=== PATIENT | male | born 1975 | race Hispanic/Latino ===

== ENCOUNTER 2024-09-24 12:29 | Emergency (ER) | payer SELFPAY ==
[2024-09-24] MEDS ORDERED: LIDOCAINE 2% W/EPI 1:200,000 MPF 20 ML VIAL IM ONE (12:41)
[2024-09-24] MEDS ORDERED: CEFAZOLIN SODIUM 2 GM/VIAL ONE (12:50)
[2024-09-24] MEDS ORDERED: TDAP (DIPHTH,PERTUSS(ACELL),TET VAC) 0.5 ML VIAL IMVAC ONE (12:50)
[2024-09-24] MEDS ORDERED: NA CHLORIDE 0.9% 100 ML ONE (12:50)
[2024-09-24 13:07] LABS: Absolute Basophils 0.1 K/uL (0-0.5); Absolute Eosinophils 0.2 K/uL (0-0.5); Absolute Lymphocytes (CBC) 2.5 K/uL (0.7-4.9); Absolute Monocytes 0.7 K/uL (0.1-1.3); Absolute Neutrophil 6.9 K/uL (1.8-8.0); Basophils % 0.9 % (0-1.3); Eosinophils % 1.7 % (0-4.4); Hematocrit 40.2 % (39.6-49.0); Hemoglobin 13.4 g/dL (13.6-17.9); Lymphocytes % 24.2 % (15.3-44.8); MCH 31.7 pg (27.0-35.0); MCHC 33.3 g/dL (32.0-36.0); MCV 95.1 fL (80-100); MPV 7.7 fL (7.6-11.3); Monocytes % 6.6 % (3.3-12.3); Neutrophils % 66.6 % (41.7-73.7); Platelets 336 thou/uL (152-406); RBC Red Blood Cell Count 4.22 M/uL (4.33-5.43); Red Cell Distribution Width 13.1 % (12.1-15.2)
[2024-09-24 13:10] LABS: PT Prothrombin Time 11.7 SECONDS (9.4-12.5); Protime INR 1.05
--- NOTE | 2024-09-24 13:18 | EDPHYS ---
Physician Documentation [facility] Name: Atul Odom Age: 49 yrs Sex: Male : 1975 Arrival Date: 09/24/2024 Time: 12:29 Bed 3 Private MD: ROSALINE Physician Abner Lafleur HPI: 09/24 13:08 This 49 yrs old Male presents to ER via Ambulatory with complaints of tom Laceration To Arm. 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 The laceration(s) tom is(are) located on the palmar aspect of right forearm. Onset: The symptoms/episode began/occurred just prior to arrival. Associated signs and symptoms: Pertinent positives: heavy bleeding. The patient has not experienced similar symptoms in the past. Historical: - Allergies: 13:05 No Known Allergies; ph - PMHx: 13:05 None; ph - Immunization history:: Adult Immunizations unknown. - Infectious Disease History:: Denies. - Social history:: Smoking status: unknown. ROS: 13:08 Constitutional: Negative for fever, chills, and weight loss, Eyes: Negative for injury, tom pain, redness, and discharge, ENT: Negative for injury, pain, and discharge, Neck: Negative for injury, pain, and swelling, Cardiovascular: Negative for chest pain, palpitations, and edema, Respiratory: Negative for shortness of breath, cough, wheezing, and pleuritic chest pain, Abdomen/GI: Negative for abdominal pain, nausea, vomiting, diarrhea, and constipation, Back: Negative for injury and pain, : Negative for injury, bleeding, discharge, and swelling, Skin: Negative for injury, rash, and discoloration, Neuro: Negative for headache, weakness, numbness, tingling, and seizure, Psych: Negative for depression, anxiety, suicide ideation, homicidal ideation, and hallucinations, Allergy/Immunology: Negative for hives, rash, and allergies, Endocrine: Negative for neck swelling, polydipsia, polyuria, polyphagia, and marked weight changes, Hematologic/Lymphatic: Negative for swollen nodes, abnormal bleeding, and unusual bruising, 13:08 MS/extremity: Positive for laceration, pain, tenderness, of the palmar aspect of right forearm, Exam: 13:08 Constitutional: This is a well developed, well nourished patient who is awake, alert, tom and in no acute distress. Head/Face: Normocephalic, atraumatic. Eyes: Pupils equal round and reactive to light, extra-ocular motions intact. Lids and lashes normal. Conjunctiva and sclera are non-icteric and not injected. Cornea within normal limits. Periorbital areas with no swelling, redness, or edema. ENT: Nares patent. No nasal discharge, no septal abnormalities noted. Tympanic membranes are normal and external auditory canals are clear. Oropharynx with no redness, swelling, or masses, exudates, or evidence of obstruction, uvula midline. Mucous membranes moist. Neck: Trachea midline, no thyromegaly or masses palpated, and no cervical lymphadenopathy. Supple, full range of motion without nuchal rigidity, or vertebral point tenderness. No Meningismus. Chest/axilla: Normal chest wall appearance and motion. Nontender with no deformity. No lesions are appreciated. Cardiovascular: Regular rate and rhythm with a normal S1 and S2. No gallops, murmurs, or rubs. Normal PMI, no JVD. No pulse deficits. Respiratory: Lungs have equal breath sounds bilaterally, clear to auscultation and percussion. No rales, rhonchi or wheezes noted. No increased work of breathing, no retractions or nasal flaring. Abdomen/GI: Soft, non-tender, with normal bowel sounds. No distension or tympany. No guarding or rebound. No evidence of tenderness throughout. Back: No spinal tenderness. No costovertebral tenderness. Full range of motion. Male : Normal genitalia with no discharge or lesions. Skin: Warm, dry with normal turgor. Normal color with no rashes, no lesions, and no evidence of cellulitis. Neuro: Awake and alert, GCS 15, oriented to person, place, time, and situation. Cranial nerves II-XII grossly intact. Motor strength 5/5 in all extremities. Sensory grossly intact. Cerebellar exam normal. Normal gait. Psych: Awake, alert, with orientation to person, place and time. Behavior, mood, and affect are within normal limits. 13:08 Musculoskeletal/extremity: Extremities: decreased ROM, laceration, pain, ROM: limited active range of motion due to pain, limited passive range of motion due to pain, Circulation is intact in all extremities. decreased sensation, Compartment Syndrome exam of affected extremity: is normal. Tendon exam: specific tendon testing normal through active and passive range of motion Vital Signs: 13:03 BP 142 / 87; Pulse 87; Resp 18; Temp 97.9; Pulse Ox 98% ; ph 14:48 BP 136 / 84; Pulse 89; Resp 18; Temp 98; Pulse Ox 98% on R/A; ph Gretel Coma Score: 13:08 Eye Response: spontaneous(4). Motor Response: obeys commands(6). Verbal Response: tom oriented(5). Total: 15. MDM: 13:06 Medical Screening Exam initiated [facility] 13:10 Differential diagnosis: tendon injury, vascular injury. Data reviewed: vital signs, [facility] nurses notes, lab test result(s), radiologic studies, plain films. Consideration of Admission/Observation Escalation of care including admission/observation considered. I considered the following discharge prescriptions or medication management in the emergency department Medications were administered in the Emergency Department. See MAR. Independent interpretation of the following test(s) in the Emergency Department X-Ray: My interpretation is no fx , no fb. Test considered but Not performed: Ultrasound no arterial doppler. 09/24 12:48 Order name: CBC with Diff; Complete Time: 13:35 ph 09/24 12:48 Order name: Basic Metabolic Panel; Complete Time: 13:35 ph 09/24 12:48 Order name: PT-INR; Complete Time: 13:35 ph 09/24 13:01 Order name: Forearm Right XRAY [facility] 09/24 12:48 Order name: Dressing - Wound; Complete Time: 12:54 ph 09/24 12:48 Order name: Gloves, Sterile; Complete Time: 12:54 ph 09/24 12:48 Order name: Setup Suture Tray; Complete Time: 12:54 ph 09/24 13:01 Order name: NPO; Complete Time: 13:07 [facility] Administered Medications: 12:54 Drug: Lidocaine-Epinephrine Infiltration -1%: (1:100,000) 1 vials 20 ml Infiltration ph once; to bedside Volume: 20 ml; Route: Infiltration; 14:47 Follow up: Response: No adverse reaction ph 13:06 Drug: ceFAZolin IVPB 2 grams IVPB once over 30 mins; (mix in 100 mL NS) Route: IVPB; ph Infused Over: 30 mins; Site: left forearm; 13:38 Follow up: Response: No adverse reaction; IV Status: Completed infusion ph 13:06 Drug: Boostrix Tdap IM 0.5 ml IM once; as a single dose Route: IM; Site: left deltoid; ph 14:47 Follow up: Response: No adverse reaction ph 14:46 Not Given (Other Intervention Used): morphineor iv 4 mg IVP once over 4 mins ph 19:13 Not Given (Other Intervention Used): ondansetron 4 mg IVP once; over 2 minutes ph Disposition Summary: 09/24/24 13:17 Transfer Ordered Notes: Transfer Location: [facility] Reason: Higher level of care tom Condition: Fair tom Problem: new tom Symptoms: have improved tom Accepting Physician: to [facility] , hand surgery STAB FOREARM(09/24/24 14:49) ph Diagnosis - Other specified injuries right forearm, initial encounter - STAB / LACERATION WITH tom ARTERIAL AND VENOUS INJURY Forms: - Medication Reconciliation Form tom - SBAR form tom Signatures: Dispatcher [employer] EDAbner Calvo MD MD cha Hall, Patricia, RN RN ph Corrections: (The following items were deleted from the chart) 14:49 13:17 to [facility] , hand surgery STAB FOREARM [facility] ph
--- NOTE | 2024-09-24 13:18 | ER ---
Nurse's Notes [facility] Name: Atul Odom Age: 49 yrs Sex: Male : 1975 Arrival Date: 09/24/2024 Time: 12:29 Bed 3 Private MD: Diagnosis: Other specified injuries right forearm, initial encounter-STAB / LACERATION WITH ARTERIAL AND VENOUS INJURY Presentation: 09/24 13:03 Chief complaint: Patient states: Cut R forearm w/ a hooked kevan knife, significant ph amount of bleeding noted, soaked through dressing. Coronavirus screen: Vaccine status: Patient reports being unvaccinated. Ebola Screen: No symptoms or risks identified at this time. Complicating Factors: There are no complicating factors for this patient. Initial Sepsis Screen: Does the patient meet any 2 criteria? No. Patient's initial sepsis screen is negative. Does the patient have a suspected source of infection? No. Patient's initial sepsis screen is negative. Risk Assessment: Do you want to hurt yourself or someone else? Patient reports no desire to harm self or others. Onset of symptoms was September 24, 2024. 13:03 Method Of Arrival: Ambulatory ph 13:03 Acuity: TENNIL[place] 2 ph Triage Assessment: 13:05 General: Appears in no apparent distress. Behavior is calm, cooperative. Pain: ph Complains of pain in palmar aspect of right forearm. Neuro: Level of Consciousness is awake, alert, obeys commands, Oriented to person, place, time, situation. Cardiovascular: Capillary refill < 3 seconds Patient's skin is warm and dry. Injury Description: Laceration sustained to palmar aspect of right forearm is 0.5 to 2.5 cm long, bleeding profusely. Historical: - Allergies: 13:05 No Known Allergies; ph - PMHx: 13:05 None; ph - Immunization history:: Adult Immunizations unknown. - Infectious Disease History:: Denies. - Social history:: Smoking status: unknown. Screenin:07 [facility] ED Fall Risk Assessment (Adult) History of falling in the last 3 months, ph including since admission No falls in past 3 months (0 pts) Confusion or Disorientation No (0 pts) Intoxicated or Sedated No (0 pts) Impaired Gait No (0 pts) Mobility Assist Device Used No (0 pt) Altered Elimination No (0 pt) Score/Fall Risk Level 0 - 2 = Low Risk Oriented to surroundings, Maintained a safe environment, Hourly rounding (assess needs \T\ fall precautionary measures) done. Abuse screen: Denies threats or abuse. Denies injuries from another. Nutritional screening: No deficits noted. Tuberculosis screening: No symptoms or risk factors identified. Assessment: 13:08 General: SEE TRIAGE ASSESSMENT. ph Vital Signs: 13:03 BP 142 / 87; Pulse 87; Resp 18; Temp 97.9; Pulse Ox 98% ; ph 14:48 BP 136 / 84; Pulse 89; Resp 18; Temp 98; Pulse Ox 98% on R/A; ph Gretel Coma Score: 13:08 Eye Response: spontaneous(4). Motor Response: obeys commands(6). Verbal Response: tom oriented(5). Total: 15. ED Course: 12:29 Patient arrived in ED. ra3 12:32 Abner Lafleur MD is Attending Physician. ec2 12:46 Vika Dodge, RN is Primary Nurse. ph 13:01 transfer initiated to [facility] by dr lafleur. bd 13:05 Triage completed. ph 13:07 CBC with Diff Sent. ph 13:07 Basic Metabolic Panel Sent. ph 13:07 PT-INR Sent. ph 13:08 Patient has correct armband on for positive identification. Bed in low position. Call ph light in reach. Side rails up X 1. Pulse ox on. NIBP on. 13:08 Arm band placed on Patient placed in an exam room. ph 13:08 Assist provider with laceration repair on palmar aspect of right forearm that was 2.5 ph cm. or less using sutures. Set up tray. Performed by Abner Lafleur MD Dressed with Kerlix, Patient tolerated well. 13:48 pt accepted in transfer to [facility] er by dr Contreras admin approval given by bert Moore. 14:12 Forearm Right XRAY In Process Unspecified. EDMS 14:20 ems will transport pt. bd 14:48 Patient transferred, IV remains in place. ph Administered Medications: 12:54 Drug: Lidocaine-Epinephrine Infiltration -1%: (1:100,000) 1 vials 20 ml Infiltration ph once; to bedside Volume: 20 ml; Route: Infiltration; 14:47 Follow up: Response: No adverse reaction ph 13:06 Drug: ceFAZolin IVPB 2 grams IVPB once over 30 mins; (mix in 100 mL NS) Route: IVPB; ph Infused Over: 30 mins; Site: left forearm; 13:38 Follow up: Response: No adverse reaction; IV Status: Completed infusion ph 13:06 Drug: Boostrix Tdap IM 0.5 ml IM once; as a single dose Route: IM; Site: left deltoid; ph 14:47 Follow up: Response: No adverse reaction ph 14:46 Not Given (Other Intervention Used): morphineor iv 4 mg IVP once over 4 mins ph 19:13 Not Given (Other Intervention Used): ondansetron 4 mg IVP once; over 2 minutes ph Medication: 13:07 VIS not applicable for this client. ph Outcome: 13:17 ER care complete, transfer ordered by MD. santos 14:47 Transferred by ground EMS [facility], . to [facility], Transfer form ph completed. X-rays sent w/ patient. 14:47 Condition: good 14:47 Instructed on the need for transfer, 14:49 Patient left the ED. ph Signatures: Dispatcher [employer] EDMS Kathy Barboza Corey, MD MD cha Hall, Patricia, RN RN Horace Brewer MD MD ec2 Alva, Ruby ra3
[2024-09-24 13:21] LABS: Anion Gap 11.1 mEq/L (5.0-15.0); Potassium 4.1 mEq/L (3.5-5.1)
--- NOTE | 2024-09-24 14:59 | RAD REPORT ---
Exam: XR Forearm Right Clinical history: PAIN Technique: Radiographic views of the right forearm. Findings: No fracture or dislocation seen. No evidence of an elbow joint effusion. Joint alignment is maintaine d. No significant degenerative changes or erosions. Soft tissue irregularity/swelling along the anteromedial distal forearm.
[2024-09-24 16:10] VITALS: O2SAT 98
[2024-09-24 16:12] VITALS: BP 136/84; TEMP 98
== END 2024-09-24 14:49 | disposition short-term general hospital (02) ==
LOC: ER 12:29
DX: S55.911A Laceration of unspecified blood vessel at forearm level, right arm, initial encounter (principal); W27.8XXA Contact with other nonpowered hand tool, initial encounter; Y93.H3 Activity, building and construction; Y92.9 Unspecified place or not applicable; Y99.0 Civilian activity done for income or pay; Z23 Encounter for immunization
CPT/HCPCS: 36415; 80048; 85025; 85610; 96365; 96372; 99285